=== PATIENT | male | born 1955 | race Caucasian/White ===

== ENCOUNTER 2019-10-28 08:26 | Emergency (ER) | payer BC ==
[2019-10-28 08:32] VITALS: BP 182/102
--- NOTE | 2019-10-28 08:35 | ED ---
Back Pain - HPI Summary HPI Summary: 64 y/o M presenting to [facility] c/o 02/13 back pain s/p slipping on his deck at home , falling, landing on to his back Tuesday 10/24 AM. He immediately developed pain in left sided posterior ribs. Patient is an employee here in [employer]. He came to work that night after the fall. On Wednesday 10/25 AM patient woke up with pain. He called off work. His pain was starting to improve but yesterday 10/26 the pain worsened. This morning patient had difficult getting out of bed2/2 pain. He denies weakness or numbness in his lower extremities. Patient drove here today. Hx HTN, hypercholesterolemia, GERD. Medications reviewed. FHx diabetes. - History of Current Complaint Chief Complaint: EDBackInjuryPain Stated Complaint: FALL-BACK PAIN PER PT Time Seen by Provider: 10/28/19 08:32 Hx Obtained From: Patient Onset/Duration: Lasting Days - 3, Still Present Onset/Duration: Started Days Ago - 3, Still Present Timing: Constant Back Pain Location: Is Discrete @ - left sided posterior ribs Severity Currently: Severe Pain Intensity: 8 Pain Scale Used: 0-10 Numeric Aggravating Symptom(s): Nothing Alleviating Symptom(s): Nothing Associated Signs And Symptoms: Positive: Negative - weakness or numbness in his lower extremities - Allergies/Home Medications Allergies/Adverse Reactions: Allergies Allergy/AdvReac Type Severity Reaction Status Date / Time No Known Allergies Allergy Verified 10/28/19 08:32 Home Medications: Home Medications [place]-3/Dha/Epa/Fish Oil [Fish Oil] 1,000 mg PO DAILY 11/27/16 [History Confirmed 10/28/19] Omeprazole CAP (NF) [Prilosec CAP* 20 MG] 20 mg PO DAILY 11/27/16 [History Confirmed 10/28/19] Simvastatin [Zocor 40 MG (NF)] 80 mg PO DAILY 11/27/16 [History Confirmed ] lisinopriL [Lisinopril 30 MG-] 30 mg PO DAILY 11/27/16 [History Confirmed ] Calcium Carbonate [Calcium] 500 mg PO DAILY 10/28/19 [History Confirmed 10/28/19 ] Cyclobenzaprine TAB* [Flexeril 10 MG TAB*] 10 mg PO TID PRN 4 Days #12 tab 10/27 [Rx] Ibuprofen TAB* [Advil TAB*] 200 mg PO Q6H PRN 10/28/19 [History Confirmed ] Ketorolac TAB * [Toradol TAB *] 10 mg PO Q6H PRN 7 Days #12 tab 10/28/19 [Rx] Multivitamins/Minerals TAB* [Theragran/minerals TAB*] 1 tab PO DAILY 10/28/19 [ History Confirmed 10/28/19] PMH/Surg Hx/FS Hx/Imm Hx Endocrine/Hematology History: Denies: Hx Anticoagulant Therapy Respiratory History: Denies: Hx Asthma, Hx Chronic Obstructive Pulmonary Disease (COPD) Sensory History: Reports: Hx Contacts or Glasses Opthamlomology History: Reports: Hx Contacts or Glasses - Surgical History Surgery Procedure, Year, and Place: endoscopy Infectious Disease History: No Infectious Disease History: Denies: Traveled Outside the [place] in Last 30 Days - Family History Known Family History: Positive: Diabetes - Social History Alcohol Use: Occasionally Substance Use Type: Reports: None Hx Tobacco Use: No Smoking Status (MU): Never Smoked Tobacco Review of Systems Positive: Other - left sided posterior rib pain Neurological/Mental Status: Negative - weakness or numbness in his lower extremities All Other Systems Reviewed And Are Negative: Yes Physical Exam - Summary Physical Exam Summary: Constitutional: Well-developed, Well-nourished, Alert, Cooperative Skin: Warm, Dry HENT: Normocephalic, atraumatic. Eyes: EOM normal, PERRL Neck: Trachea is midline. No stridor; No JVD; No step off; No posterior cervical spine tenderness Cardio: Rhythm regular, rate normal Heart sounds normal; Intact distal pulses; Radial pulses are 2+ and symmetric. Pulmonary/Chest wall: Effort normal; Breath sounds normal; Equal chest rise; No flail segment; left sided posterior rib tenderness; No sternal tenderness Abd: Soft, Appearance normal. No distension; No tenderness Musculoskeletal: Full ROM and no tenderness at hips, ankles, shoulders, elbows and knees; No joint swelling; No vertebral body tenderness; L sided thoracic paraspinal tenderness Neuro: Alert, Oriented x3, GCS 15. Strength 5/5 all extremities. Triage Information Reviewed: Yes Vital Signs On Initial Exam: Initial Vitals Temp Pulse Resp BP Pulse Ox 98.8 F 80 19 182/102 99 10/28/19 08:27 10/28/19 08:27 10/28/19 08:27 10/28/19 08:27 10/28/19 08:27 Vital Signs Reviewed: Yes Procedures - Procedure Summary Procedure Summary: FAST Limited emergency department ultrasound FAST (focused assessment with sonography in trauma): Indications: Trauma Procedure in Detail: The right upper quadrant was evaluated in the coronal plane and demonstrated the absence of clinically significant free fluid in Morison's pouch, the paracolic gutter, and the right hemithorax. The left upper quadrant was evaluated in the coronal plane and revealed the absence of clinically significant free fluid in the subdiaphragmatic space, inferior pole, and left hemithorax. - Sedation Patient Received Moderate/Deep Sedation with Procedure: No Diagnostics - Vital Signs Vital Signs Temp Pulse Resp BP Pulse Ox 10/28/19 08:27 98.8 F 80 19 182/102 99 - Laboratory Lab Statement: Any lab studies that have been ordered have been reviewed, and results considered in the medical decision making process. - Radiology CXR Radiology Interpretation Completed By: Radiologist - IMPRESSION: No radiographically apparent displaced rib fracture or pneumothorax. If the patient's symptoms persist, follow-up imaging is recommended. ED physician has reviewed this imaging report. Back Pain Course/Dx - Course Course Of Treatment: 64 y/o male p/w L sided rib pain after fall. - check XR, limited FAST exam neg. No midline CTL tenderness. - XR w/o fracture. Given symptomatic control. - Diagnoses Provider Diagnoses: Rib contusion, Fall - Critical Care Time Critical Care Statement: Critical care time is provided exclusive of any time spent performing procedures. Discharge ED - Sign-Out/Discharge Documenting (check all that apply): Patient Departure - Discharge Plan Condition: Stable Disposition: HOME Prescriptions: Cyclobenzaprine TAB* [Flexeril 10 MG TAB*] 10 mg PO TID PRN 4 Days #12 tab PRN Reason: Pain - Moderate Ketorolac TAB * [Toradol TAB *] 10 mg PO Q6H PRN 7 Days #12 tab PRN Reason: Pain - Moderate Patient Education Materials: Rib Contusion (ED) Referrals: Elza Ward NP [Primary Care Provider] - Additional Instructions: You were seen in the emergency department for rib pain after fall. X-ray did not show any acute fractures. You can take Toradol and Tylenol for pain. You can take Flexeril as a muscle relaxer, this may make you drowsy. You can buy [id number] lidocaine patches which may help with your pain as well. Please follow up with your primary care doctor in next 2-3 days and return to emergency department for worsening pink, numbness or weakness of the lower extremities, trouble breathing, or concerning symptoms. It was a pleasure taking care of you today. - Billing Disposition and Condition Condition: STABLE Disposition: Home - Attestation Statements Document Initiated by Elsy: Yes Documenting Scribe: Yvrose Herrera Provider For Whom Elsy is Documenting (Include Credential): Samreen Saini MD Scribe Attestation: Yvrose Franco, scribed for Samreen Saini MD on 10/28/19 at 1003. Scribe Documentation Reviewed: Yes Provider Attestation: The documentation as recorded by the scribYvrose haynes accurately reflects the service I personally performed and the decisions made by Samreen zapata MD Status of Scribe Document: Viewed
[2019-10-28] MEDS ORDERED: Ibuprofen TAB* 600 MG PO ONE (08:40)
[2019-10-28] MEDS ORDERED: Lidocaine PATCH 5%* 1 PATCH TRANSDERM ONE (08:40)
[2019-10-28] MEDS ORDERED: Acetaminophen TAB* 325 MG PO ONE (08:40)
[2019-10-28] MEDS ORDERED: Lidocaine Patch REMOVE* 1 NOTE MISC PATCH OFF SCH (21:00)
== END 2019-10-28 10:08 | disposition home or self-care (01) ==
LOC: ED 08:26
DX: S20.212A Contusion of left front wall of thorax, initial encounter (principal); M54.9 Dorsalgia, unspecified; W01.0XXA Fall on same level from slipping, tripping and stumbling without subsequent striking against object, initial encounter; Y92.9 Unspecified place or not applicable; I10 Essential (primary) hypertension; E78.00 Pure hypercholesterolemia, unspecified; K21.9 Gastro-esophageal reflux disease without esophagitis; Z83.3 Family history of diabetes mellitus; Z79.899 Other long term (current) drug therapy
CPT/HCPCS: 99282; A9270-GY